=== PATIENT | male | born 2005 | race Asian ===

== ENCOUNTER 2025-06-06 13:34 | Outpatient (CLI) | payer BC | END 2025-06-06 13:35 | disposition home or self-care (01) | LOC: SCSMRI 13:34 | PROVIDERS: ATTEND Family Medicine Sports Medicine | DX: S83.512A Sprain of anterior cruciate ligament of left knee, initial encounter (principal); S83.272A Complex tear of lateral meniscus, current injury, left knee, initial encounter; S83.242A Other tear of medial meniscus, current injury, left knee, initial encounter ==